=== PATIENT | male | born 1965 | race Caucasian/White ===

== ENCOUNTER 2018-05-20 22:14 | Emergency (ER) | payer BC ==
[~2018-05-20] VITALS: Ht 175.3 cm; Wt 110.4 kg
[2018-05-20 22:17] VITALS: TEMP 37; Ht 175.3 cm; Wt 110.4 kg
[2018-05-20] MEDS ORDERED: KETOROLAC TROMETHAMINE 60 MG/2 ML VIAL IM STA (22:39)
[2018-05-20] MEDS ORDERED: INDO75CA PO (22:42)
[2018-05-20] MEDS ORDERED: NORCO 5/325MG HOME PACK PO ONE (22:45)
[2018-05-20 22:56] VITALS: BP 166/102; PULSE 87; O2SAT 96
--- NOTE | 2018-05-20 23:41 | EMERGENCY ROOM VISIT NOTE ---
History First contact with patient: 22:27 Chief Complaint: TOE PAIN, INJURY Stated Complaint: GOUT-TOE History of Present Illness The patient is a 53 year old male who presents to the Emergency Room with complaints of pain to his right great toe for the past several hours. The patient is in the [facility] from [facility]. He is helping his son move to [facility], and began noticing some increased pain while driving this morning. Patient reports a history of gout in the past, and states this feels identical to previous episodes. Because he is traveling he does not have his usual home medications. The patient has not taken anything for his discomfort which he states is currently a 7/10. The patient is considered otherwise usually healthy and is without additional complaints. Review of Systems More than 10 systems were reviewed and otherwise negative with the exception of history of present illness. Past Medical/Surgical History No pertinent chronic medical disease Family History No pertinent family history Social History Smoking Status: Never Smoker Marital Status: Housing Status: lives with family Occupation Status: employed Current/Historical Medications Scheduled Indomethacin Ext Rel (Indocin Ext Rel), 75 MG PO BID Physical Exam Vital Signs Date Time Temp Pulse Resp B/P (MAP) Pulse Ox O2 Delivery O2 Flow Rate FiO2 05/20/18 22:56 87 18 166/102 96 Room Air 05/20/18 22:17 37.0 87 20 186/101 98 Room Air Physical Exam VITALS: Vitals are noted on the nurse's note and reviewed by myself. Vital signs stable. GENERAL: Well-developed, well-nourished, white male, who is in no acute distress and resting comfortably. Patient is cooperative with the examination. HEAD: Normocephalic atraumatic. HEART: Regular rate and rhythm without murmurs gallops or rubs. LUNGS: Clear to auscultation bilaterally without wheezes, rales or rhonchi. No retractions or accessory muscle use. MUSCULOSKELETAL: Erythema appreciated to the right first metatarsal phalangeal joint. This area is exquisitely tender on light palpation. Movement of the right great toe worsens patient discomfort. There is no obvious cellulitis, laceration, abrasion, or other signs of infection. No other discomfort of the ankle or knee appreciated. No posterior calf tenderness. Medical Decision & Procedures Medications Administered Medications (Trade) Dose Ordered Sig/Luis Route Start Time Stop Time Status Last Admin Dose Admin Ketorolac Tromethamine (Toradol Inj) 60 mg NOW STAT IM 05/20/18 22:39 05/20/18 22:40 DC 05/20/18 22:45 60 MG Acetaminophen/ Hydrocodone Bitart ([place] 5/325mg Home Pack) 1 homepack UD ONCE PO 05/20/18 22:45 05/20/18 22:46 DC 05/20/18 22:55 1 HOMEPACK ED Course Physical exam and history were performed. Nursing notes, EMR, and Medication List were personally reviewed. Patient appears to have pain of his right great toe at the metatarsal joint. He does have a history of gout, and clinically this seems to be consistent with a gout attack. I discussed options of care with the patient. He was given a dose of IM Toradol. I will give him a home pack of Vicodin. He will be given a written prescription for indomethacin to fill in the morning. The patient was otherwise invited back to the ER with any new, worsening, or concerning symptoms. The chart was completed utilizing [employer] Speech Voice Recognition Software. Grammatical errors, random word insertions, pronoun errors, and incomplete sentences are an occasional consequence of this system due to software limitations, ambient noise, and hardware issues. Any formal questions or concerns about the content, text, or information contained within the body of this dictation should be directly addressed to the provider for clarification. . Medical Decision Differential diagnosis includes, but is not limited to: Cellulitis, gout, pseudogout, DVT, and others Impression Primary Impression: Gout attack Departure Information Dispostion Home / Self-Care Condition GOOD Prescriptions Indomethacin Ext Rel (Indocin Ext Rel) 75 Mg Capcr 75 MG PO BID for 7 Days, #30 CAP Prov: Darrick Talbot PA-C 05/20/18 Forms HOME CARE DOCUMENTATION FORM, IMPORTANT VISIT INFORMATION Patient Instructions My [facility] Additional Instructions You were seen and evaluated today on an emergency basis only. This is not a substitute for, or an effort to provide, complete comprehensive medical care. It is not possible to recognize and treat all injuries or illnesses in a single emergency department visit. For this reason it is recommended that you followup with your primary care physician with any ongoing or persisting symptoms. Take Indocin as prescribed. [place] (hydrocodone/acetaminophen) 5/325 mg (homepack): Take ONE pill by mouth every 6 hours as needed for worsening breakthrough pain. Do not drink or drive on [place]. This medication will likely make you tired. Do not take [place] and Tylenol at the same time as both contain acetaminophen. [place] may cause constipation. You may wish to take an [id number] stool softener like Colace if this occurs. You are welcome to return to the emergency department anytime with new, worsening, or concerning symptoms.
== END 2018-05-20 23:01 | disposition home or self-care (01) ==
LOC: C.EDB 22:16 → C.EDA 23:01
DX: M10.071 Idiopathic gout, right ankle and foot (principal)